=== PATIENT | female | born 1980 | race Caucasian/White ===

== ENCOUNTER 2018-11-05 18:03 | Emergency (ER) | payer SELFPAY ==
[~2018-11-05] VITALS: Ht 165.1 cm; Wt 139.1 kg
[2018-11-05 18:15] VITALS: Ht 165.1 cm; Wt 139.1 kg
[2018-11-05] MEDS ORDERED: TYLENOL #4 W/CO1 TAB PO (18:19)
[2018-11-05] MEDS ORDERED: RANITIDINE HCL150 M1 PO (18:19)
[2018-11-05] MEDS ORDERED: LOPRESSOR25 MG PO (18:19)
[2018-11-05] MEDS ORDERED: SULFADIAZINE500 MG PO (18:20)
[2018-11-05] MEDS ORDERED: PHENERGAN25 M1 PO (18:21)
[2018-11-05] MEDS ORDERED: FUROSEMIDE20 MG PO (18:21)
[2018-11-05] MEDS ORDERED: BENTYL 20 MG TA20 MG PO (18:21)
[2018-11-05 19:34] LABS: INR 1.12 (0.85-1.17); PROTIME 13.9 SECONDS (11.6-15.0)
[2018-11-05 19:35] LABS: D-DIMER-QUANTITATIVE 0.64 ug/mLFEU (0.20-0.54)
[2018-11-05 19:38] LABS: BASOPHILS 0.2 % (0-2); EOSINOPHILS 1.3 % (0-7); HEMATOCRIT 31.2 % (36.0-48.0); HEMOGLOBIN 10.3 g/dL (12-16); IMMATURE GRANULOCYTES 0.5 % (0-5); LYMPHOCYTES 33.1 % (15-50); MCH 29.1 pg (26.0-34.0); MCV 88.1 fL (80.0-100.0); MEAN PLATELET VOLUME 9.6 fL (7.4-10.4); MONOCYTES 7.1 % (2-11); NEUTROPHILS 57.8 % (40-80); PLATELET COUNT 174 10x3/uL (130-400); RBC 3.54 10x6/uL (4.00-5.40); WBC 8.5 10x3/uL (4.8-10.8)
[2018-11-05 19:50] LABS: ALBUMIN 3.2 g/dL (3.4-5.0); ALKALINE PHOSPHATASE 65 U/L (46-116); ALT (SGPT) 75 U/L (10-68); BILIRUBIN - TOTAL 0.22 mg/dL (0.2-1.3); CALC OSMOLALITY 282 mosm/kg (275-300); CALCIUM 8.5 mg/dL (8.5-10.1); CHLORIDE - SERUM 107 mmol/L (98-107); CREATININE - SERUM 0.6 mg/dL (0.6-1.3); GLUCOSE 103 mg/dL (74-106); POTASSIUM - SERUM 3.8 mmol/L (3.5-5.1); PROTEIN - SERUM 6.5 g/dL (6.4-8.2); SODIUM 142 mmol/L (136-145); UREA NITROGEN 13 mg/dL (7-18); eGFR NON AFRICAN AMERICAN > 90 mL/min (90-120)
[2018-11-05] MEDS ORDERED: ULTRAM50 MG PO (20:24)
[2018-11-05 20:55] VITALS: BP 138/65
== END 2018-11-05 20:55 | disposition home or self-care (01) ==
LOC: D.ER 18:03
PROVIDERS: Emergency Medicine
DX: M25.461 Effusion, right knee (principal)